=== PATIENT | male | born 1995 | race Caucasian/White ===

== ENCOUNTER → 2023-11-25 09:25 | Outpatient (REF) | payer BC, SELFPAY | LOC: WDC 09:25 | PROVIDERS: ATTENDING PHYSICIAN Family Medicine | DX: N63.42 Unspecified lump in left breast, subareolar (principal); N61.0 Mastitis without abscess | CPT/HCPCS: 76642; 77062; 77066 ==

== ENCOUNTER 2024-09-27 18:03 | Emergency (ER) | payer BC, SELFPAY ==
[2024-09-27 18:26] VITALS: BP 155/107
[2024-09-27 19:22] LABS: % Basophils 0.8 % (0-2); % Eosinophils 2.8 % (0-6); % Lymphocytes 28.5 % (20.5-51.1); % Monocytes 12.2 % (1.7-9.3); % Neutrophils 55.7 % (42.2-75.2); Absolute Eosinophils 0.1 10^3/uL (0-0.7); Absolute Lymphocytes 1.4 10^3/uL (1.2-3.4); Absolute Monocytes 0.6 10^3/uL (0.1-0.6); Absolute Neutrophils 2.8 10^3/uL (1.4-6.5); Hematocrit 46.5 % (39.0-52.0); Hemoglobin 15.8 g/dL (13.0-18.0); Mean Corpuscular Hgb 28.3 pg (27.0-31.0); Mean Corpuscular Volume 83.3 fL (80.0-94.0); Mean Platelet Volume 9.2 fL (7.4-10.4); Nucleated Red Blood Cells % 0 % (-); Platelet Count 249 10^3/uL (130-400); Red Blood Cell Count 5.58 10^6/uL (4.70-6.10); Red Cell Dist. Width 13.1 % (11.5-14.5)
[2024-09-27 19:29] LABS: ALT (SGPT) 24 U/L (0-50); AST (SGOT) 28 U/L (17-59); Albumin 4.8 g/dl (3.5-5.0); Alkaline Phosphatase 59 U/L (38-126); Blood Urea Nitrogen 13 mg/dl (9-20); Calcium 8.8 mg/dl (8.4-10.2); Carbon Dioxide 22 mmol/L (22-30); Chloride 97 mmol/L (98-107); Glucose 97 mg/dl (70-99); Potassium 3.6 mmol/L (3.5-5.1); Sodium 134 mmol/L (135-145); Total Bilirubin 1.2 mg/dl (0.2-1.3); Total Protein 7.9 g/dl (6.3-8.2); eGFR > 60.00
--- NOTE | 2024-09-27 23:06 | ED.GENMED ---
History of Present Illness
<Jade Oakley PA-C - Last Filed: 09/28/24 00:41>
General
Chief Complaint: Abdominal Symptoms
Source: patient
Exam Limitations: none
Time Seen by Provider: 09/27/24 22:43
Nursing documentation reviewed up to this point in time: agreed with
History of Present Illness
History of Present Illness:
Patient is a 29-year-old male presenting to the emergency department for evaluation of abdominal symptoms. Patient states 2 days ago he started with vomiting and fever. Vomiting was shortly followed by diarrhea which has persisted. He states
stool has been very dark, almost black. He reports a few episodes of diarrhea a day. He is concerned that he is dehydrated. Fevers have been intermittent over the past 2 days. He denies any significant abdominal pain. No dysuria. No associated
chest pain or shortness of breath. No hematemesis. Patient does state that he did take Pepto-Bismol at initial onset of symptoms.
Patient did contact his primary care doctor who recommended he be seen in the emergency department given dark stool.
Patient denies any known sick contacts. No recent antibiotic use or hospitalization. No raw/undercooked seafood
Review of Systems
<Jade Oakley PA-C - Last Filed: 09/28/24 00:41>
Review of Systems
Allergies reviewed?: Yes
All Other Systems: ROS reviewed and negative except as documented in HPI and ROS
Phy Exam
<Jade Oakley PA-C - Last Filed: 09/28/24 00:41>
Physical Exam
Physical Exam:
Vitals: Hypertensive, otherwise vital signs stable. Afebrile
General: Patient is well appearing, no acute distress. Nontoxic appearing
Skin: Warm and dry, no rashes or lesions
Head: Normocephalic, atraumatic
Eyes: Sclera nonicteric. EOMs intact. No nystagmus.
Throat: Moist mucous membranes. Protecting airway
Neck: Normal ROM, no cervical spine tenderness, no meningismus
Cardiac: Regular rate and rhythm, no murmurs.
Pulm: Normal respiratory effort, no wheezes, rales, rhonchi heard on exam.
Abdomen: Abdomen soft. No abdominal tenderness. No rebound tenderness.
Rectal: No external hemorrhoids visualized. Minimal amount of dark brown stool in vault. Hemoccult negative.
Extremities: No evidence of cyanosis or edema. Palpable DP pulses bilaterally
Neuro: AAOx3. Grossly intact
Psychiatric: Normal affect.
Course
<Jade Oakley PA-C - Last Filed: 09/28/24 00:41>
Orders/Labs/Results
Orders:
Orders
09/27/24 18:47
Complete Blood Count/With Diff Urgent
Comprehensive Metabolic Panel Urgent
09/27/24 23:01
0.9% Sodium Chloride 1000 ml [Nss] 1,000 ml IV BOLUS
Abnormal Lab Results
09/27/24
18:47
Monocytes % 12.2 H %
(1.7-9.3)
Sodium 134 L mmol/L
(135-145)
Chloride 97 L mmol/L
(98-107)
09/27/24 18:47
09/27/24 18:47
Vital Signs
Initial and Last Documented VS:
Initial Vital Signs
Temp Pulse Resp BP Pulse Ox
99.3 F 95 18 155/107 98
09/27/24 18:26 09/27/24 18:26 09/27/24 18:26 09/27/24 18:26 09/27/24 18:26
Last Documented Vital Signs
Temp Pulse Resp BP Pulse Ox
97.7 F 78 18 131/93 97
09/27/24 23:38 09/27/24 23:38 09/27/24 18:26 09/27/24 23:38 09/27/24 23:38
<Hilda Moore DO - Last Filed: 09/27/24 23:56>
Orders/Labs/Results
Orders:
Orders
09/27/24 18:47
Complete Blood Count/With Diff Urgent
Comprehensive Metabolic Panel Urgent
09/27/24 23:01
0.9% Sodium Chloride 1000 ml [Nss] 1,000 ml IV BOLUS
Abnormal Lab Results
09/27/24
18:47
Monocytes % 12.2 H %
(1.7-9.3)
Sodium 134 L mmol/L
(135-145)
Chloride 97 L mmol/L
(98-107)
09/27/24 18:47
09/27/24 18:47
Vital Signs
Initial and Last Documented VS:
Initial Vital Signs
Temp Pulse Resp BP Pulse Ox
99.3 F 95 18 155/107 98
09/27/24 18:26 09/27/24 18:26 09/27/24 18:26 09/27/24 18:26 09/27/24 18:26
Last Documented Vital Signs
Temp Pulse Resp BP Pulse Ox
97.7 F 78 18 131/93 97
09/27/24 23:38 09/27/24 23:38 09/27/24 18:26 09/27/24 23:38 09/27/24 23:38
<Jade Oakley PA-C - Last Filed: 09/28/24 00:41>
MDM/Problems Addressed
Differential Diagnosis Includes:
Not limited to: Viral gastroenteritis, bacterial colitis, medication side effect, GI bleeding, etc.
MDM/Problems Addressed:
29-year-old male presenting with few days of nausea, vomiting, diarrhea with intermittent fevers. He did noticed dark stool. Denies any significant abdominal pain, lightheadedness, shortness of breath. Patient initially hypertensive on arrival
although improved by my assessment. He is afebrile here. On exam�patient well-appearing, in no apparent distress. Abdomen is soft with no tenderness. Cardio/pulmonary assessment unremarkable. Screening labs initiated in triage with normal
hemoglobin. No abnormalities noted on chemistry. Ultimately�suspect likely viral gastroenteritis. No risk factors for bacterial diarrhea. Low suspicion for acute intra-abdominal emergency given benign abdominal exam and consideration the patient
is afebrile with no leukocytosis. Do not feel imaging is warranted at this time. Patient will attempt providing stool sample and will perform Hemoccult. It is possible dark stool may be secondary to Pepto-Bismol that he took at initial onset of
symptoms. Will give IV fluids and reassess.
Update 12:09 AM: Into reassess patient at bedside who is feeling well. He was unable to provide stool sample. Did perform rectal exam with very minimal amount of dark brown stool in vault. Hemoccult negative. Ultimately�suspect dark stool
secondary to Pepto-Bismol. Impression is likely viral gastroenteritis. He received a liter of IV fluids in the emergency department. Feel stable for discharge home with primary care follow-up. Return precautions discussed.
Chronic conditions affecting care:
N/A
Acute Exacerbation and/or Progression of Chronic Illness:
N/A
<Jade Oakley PA-C - Last Filed: 09/28/24 00:41>
*Pulse Oximetry
Patient hypoxic: no
*EKG
Interpreted by ED Provider?: NA
*[employer] Specialist Interpretation
Rate: [employer] Specialist- N/A
*Critical Care Note
Total Time (30-74mins, 75-104mins- exclusive of procedures): Not Applicable
ED Attending Note
<Jade Oakley PA-C - Last Filed: 09/28/24 00:41>
-
Portions of this chart may have been created with voice recognition software.� Occasional wrong word or��sound alike� substitutions may have occurred due to the inherent limitations of voice recognition software.
<Hilda Moore DO - Last Filed: 09/27/24 23:56>
ED Attending Note
Patient seen and examined by attending physician: Yes
I performed the substantive portion of visit, reviewed & personally made and approve the management plan that is documented in note by myself or GURINDER.: Yes
I performed a history and physical exam of patient and discussed management with resident, I reviewed resident's note and agree with documented findings and plan of care.: Yes
ED Attending Note:
29-year-old male with significant past symptoms started phase ago. Vomiting has improved. Significant abdominal pain. Saw his primary care doctor, was concerned that he was having dark stool, however took Pepto-Bismol. Patient is concerned that
he is dehydrated. Vital signs are normal.
On exam, really, no acute distress, nontoxic. Benign abdominal without any reproducible tenderness. Screening laboratory analysis obtained, normal hemoglobin, normal electrolyte panel. Without present concern for severe dehydration or GI bleed.
Patient to stool sample versus rectal exam. Treating therapeutically with IV fluids with plan for discharge and outpatient supportive therapy
Discharge Plan
Departure
Patient Disposition: Home (Routine Discharge)
Date of Disposition: 09/28/24
Time of Disposition: 00:39
Patient with high blood pressure during this ER visit?: Yes
Condition: Good
Covid-19: Not Applicable
Discharge Problem:
Nausea, vomiting and diarrhea
Instructions: Nausea and Vomiting, Adult (DC), Acute Diarrhea, BLOOD PRESSURE
Referrals:
Martin Quinteros MD [Family Provider] - Follow up in 2-3 days
Activity Restrictions/Additional Instructions:
Return to the emergency department with any high fevers, severe abdominal pain, intractable nausea/vomiting, intractable diarrhea, concerns for severe dehydration, or any other concerns
-As discussed your lab work in emergency room showed no acute abnormalities. You did receive a liter of IV fluids.
-Your stool testing was negative for any microscopic blood. I suspect your dark stools secondary to Pepto-Bismol
-As discussed�you should stay well-hydrated. I would recommend a bland diet over the next few days.
-Follow-up with PCP for further evaluation/management to ensure that symptoms are improving
Monitor your symptoms closely and return to the emergency department with any acute worsening/new symptoms or any other concerns
Interventions
Interventions:
*Risk Screen - Suicide Last Done: 09/27/24 23:31
*General Assessment Last Done: 09/27/24 23:31
*Neglect/Abuse Screening Last Done: 09/27/24 23:31
*ED COVID-19 Vaccine History Last Done: 09/27/24 23:31
YG-Sleiul-[id number] Assessment Last Done: 09/27/24 23:58
Discharge Date and Time
Print Language: TRISTANIAN
[2024-09-27] MEDS: NSS 1000 IV (23:37)
[2024-09-27 23:38] VITALS: BP 131/93
[2024-09-28 01:15] VITALS: BP 127/86
== END 2024-09-28 01:49 | disposition home or self-care (01) ==
LOC: EMR 18:03
PROVIDERS: Emergency Medicine; EMERGENCY PHYSICIAN Student in an Organized Health Care Education/Training Program; FAMILY PHYSICIAN Family Medicine
DX: R11.2 Nausea with vomiting, unspecified (principal); R19.7 Diarrhea, unspecified; R03.0 Elevated blood-pressure reading, without diagnosis of hypertension
CPT/HCPCS: 99284; 96360; 80053; 85025